=== PATIENT | female | born 1950 | race African-American/Black ===

== ENCOUNTER 2022-11-23 19:44 | Inpatient (IN) | payer MEDICARE, MEDICAID ==
[~2022-11-23] VITALS: Ht 162.6 cm; Wt 69.4 kg
[2022-11-23 19:00] VITALS: BP 111/62; PULSE 76; RESP 20; TEMP 98.4
[2022-11-23 20:00] VITALS: BP 148/80; PULSE 63; RESP 16; TEMP 97.8
[2022-11-23] MEDS ORDERED: ACETAMINOPHEN 325MG TABLET PO PRN (20:15)
[2022-11-23] MEDS ORDERED: IPRATROPIUM/ALBUTEROL 0.5-3(2.5)MG/3ML NEB HHN PRN (20:15)
[2022-11-23] MEDS ORDERED: ONDANSETRON HCL 4MG/2ML INJ IV PRN (20:15)
[2022-11-23] MEDS ORDERED: CLONIDINE 0.1MG TABLET PO PRN (20:15)
[2022-11-23] MEDS ORDERED: SODIUM CHLORIDE 0.45% 1,000 ML IV SCH (20:15)
[2022-11-23] MEDS: LACTULOSE 20G/30ML UDC PO SCH (23:13)
[2022-11-24] MEDS: LACTULOSE 20G/30ML UDC PO SCH ×3 (05:53→22:26)
[2022-11-24 08:00] VITALS: BP 154/89; PULSE 64; RESP 20; TEMP 97.8
[2022-11-25] MEDS: LACTULOSE 20G/30ML UDC PO SCH ×3 (05:38→22:00)
[2022-11-25 08:00] VITALS: BP 140/65; PULSE 70; RESP 18; TEMP 98.2
[2022-11-25 09:57] LABS: BASOPHILS % 0.5 % (0.0-2.0); EOSINOPHILS % 0.6 % (0.0-5.0); HEMOGLOBIN. 13.6 g/dL (12.0-16.0); LYMPHOCYTES % 19.2 % (20.0-50.0); MEAN CORPUSCULAR HEMOGLOBIN 28.4 pg (28.0-32.0); MEAN CORPUSCULAR HGB CONC 33.1 g/dL (31.0-37.0); MEAN CORPUSCULAR VOLUME 85.9 fL (81.0-99.0); MONOCYTES % 5.7 % (2.0-8.0); RED BLOOD CELL COUNT 4.78 mill/uL (4.2-5.4); RED CELL DISTRIBUTION WIDTH 13.7 % (11.6-14.6); WHITE BLOOD COUNT 7.7 x1000/uL (4.5-11.0)
[2022-11-25 10:01] LABS: DIFFERENTIAL COMMENT 1
[2022-11-25 10:03] LABS: AMMONIA 30 uMol/L (<32)
[2022-11-25 10:32] LABS: INDEX HEMOLYSI 1 (1-3); INDEX ICTERIC 1 (1-4); INDEX LIPEMIC 1 (1-3)
[2022-11-25 10:52] LABS: ALANINE AMINOTRANSFERASE 28 IU/L (13-61); ALBUMIN 3.6 g/dL (3.4-5.0); ASPARTATE AMINOTRANSFERASE 32 IU/L (15-37); BILIRUBIN TOTAL 0.6 mg/dL (0.1-1.0); CALCIUM 9.9 mg/dL (8.5-10.1); CARBON DIOXIDE 27 mEq/L (21-32); CHLORIDE 104 mEq/L (98-107); CHOLESTEROL 186 mg/dL (<200); CREATINE KINASE 111 IU/L (26-192); CREATININE 0.8 mg/dL (0.6-1.3); GLUCOSE 136 mg/dL (70-105); HDL CHOLESTEROL 77 mg/dL (40-59); IRON 70 ug/dL (50-175); LDL CHOLESTEROL 99 mg/dL (5-100); POTASSIUM 3.7 mEq/L (3.5-5.1); PREALBUMIN 29.5 mg/dL (20.0-40.0); SODIUM 138 mEq/L (136-145); TOTAL IRON BINDING CAPACITY 333 ug/dL (250-450); TRIGLYCERIDE 97 mg/dL (0-150); UREA NITROGEN BLOOD 15 mg/dL (7-21)
[2022-11-25 11:17] LABS: MEAN PLATELET VOLUME 11.7 fl (7.4-10.4); PLATELET 113 x1000/uL (130-400)
[2022-11-25 11:39] LABS: FOLIC ACID (FOLATE) SERUM > 20.00 ng/mL (>5.38); VITAMIN B12 SERUM > 2000.0 pg/mL (211-911)
[2022-11-25 14:25] LABS: FERRITIN 65 ng/mL (10-291)
[2022-11-25] MEDS ORDERED: ONDANSETRON 4MG ODT PO PRN (19:08)
[2022-11-25 20:00] VITALS: BP 165/95; PULSE 86; RESP 18; TEMP 97.5
[2022-11-26] MEDS: LACTULOSE 20G/30ML UDC PO SCH ×3 (06:00→22:36)
[2022-11-26 08:00] VITALS: BP 158/82; PULSE 70; RESP 18; TEMP 97.8
[2022-11-26] MEDS ORDERED: ONDANSETRON 4MG ODT PO PRN (12:12)
[2022-11-26 12:39] LABS: CLARITY URINE TURBID (CLEAR); COLOR URINE YELLOW (YELLOW); GLUCOSE URINE NEGATIVE (NEGATIVE); KETONES URINE NEGATIVE (NEGATIVE); LEUKOCYTE ESTERASE URINE 3+ (NEGATIVE); NITRITE URINE NEGATIVE (NEGATIVE); OCCULT BLOOD URINE 1+ (NEGATIVE); PH URINE 5.5 (4.5-8.0); PROTEIN URINE 1+ (NEGATIVE); SPECIFIC GRAVITY URINE 1.012 (1.005-1.030); UROBILINOGEN URINE 0.2 E.U./dL (0.2-1.0)
[2022-11-26 12:51] LABS: BACTERIA URINE 4+; SQUAMOUS EPITHELIAL CELL URINE 1+ /lpf (RARE/1+); WBC URINE TNTC /hpf (0-2); YEAST URINE NONE SEEN
[2022-11-26 20:00] VITALS: BP 160/93; PULSE 74; RESP 18; TEMP 97.9
[2022-11-26 20:55] VITALS: BP 155/90; PULSE 70
[2022-11-27] MEDS: LACTULOSE 20G/30ML UDC PO SCH ×3 (06:56→21:55)
[2022-11-27 08:00] VITALS: BP 167/93; PULSE 84; RESP 17; TEMP 97.1
[2022-11-27 20:00] VITALS: BP 158/91; PULSE 69; RESP 17; TEMP 98
[2022-11-28] MEDS: LACTULOSE 20G/30ML UDC PO SCH ×3 (06:00→21:35)
[2022-11-28 08:00] VITALS: BP 150/80; PULSE 66; RESP 18; TEMP 97.8
[2022-11-28 20:00] VITALS: BP 170/101; PULSE 80; RESP 18; TEMP 97.1
[2022-11-29] MEDS: LACTULOSE 20G/30ML UDC PO SCH ×3 (05:19→20:59)
[2022-11-29 08:00] VITALS: BP 117/75; PULSE 68; RESP 18; TEMP 97
[2022-11-29 20:00] VITALS: BP 173/77; PULSE 69; RESP 19; TEMP 97.1
[2022-11-30] MEDS: LACTULOSE 20G/30ML UDC PO SCH ×3 (06:38→21:01)
[2022-11-30 08:00] VITALS: BP 132/78; PULSE 69; RESP 17; TEMP 96.8
[2022-11-30 20:00] VITALS: BP 157/73; PULSE 69; RESP 17; TEMP 97.5
[2022-12-01] MEDS: LACTULOSE 20G/30ML UDC PO SCH ×3 (05:33→21:51)
[2022-12-01 07:40] LABS: BASOPHILS % 0.6 % (0.0-2.0); EOSINOPHILS % 0.7 % (0.0-5.0); HEMATOCRIT. 37.1 % (36.0-48.0); HEMOGLOBIN. 12.6 g/dL (12.0-16.0); LYMPHOCYTES % 18.8 % (20.0-50.0); MEAN CORPUSCULAR HEMOGLOBIN 28.7 pg (28.0-32.0); MEAN CORPUSCULAR HGB CONC 34.1 g/dL (31.0-37.0); MEAN CORPUSCULAR VOLUME 84.1 fL (81.0-99.0); NEUTROPHILS % 71.9 % (40.0-76.0); PLATELET 103 x1000/uL (130-400); RED CELL DISTRIBUTION WIDTH 13.4 % (11.6-14.6); WHITE BLOOD COUNT 8.5 x1000/uL (4.5-11.0)
[2022-12-01 08:00] VITALS: BP 140/68; PULSE 60; RESP 20; TEMP 97.6
[2022-12-01 08:10] LABS: AMMONIA 37 uMol/L (<32)
[2022-12-01 08:21] LABS: CHLORIDE 108 mEq/L (98-107); INDEX HEMOLYSI 2 (1-3); INDEX ICTERIC 1 (1-4); INDEX LIPEMIC 1 (1-3); SODIUM 138 mEq/L (136-145)
[2022-12-01 08:33] LABS: ALANINE AMINOTRANSFERASE 44 IU/L (13-61); ALBUMIN 3.2 g/dL (3.4-5.0); ASPARTATE AMINOTRANSFERASE 39 IU/L (15-37); BILIRUBIN TOTAL 0.8 mg/dL (0.1-1.0); CALCIUM 9.2 mg/dL (8.5-10.1); CARBON DIOXIDE 24 mEq/L (21-32); CREATININE 0.9 mg/dL (0.6-1.3); GLUCOSE 98 mg/dL (70-105); PROTEIN TOTAL 6.9 g/dL (6.0-8.3); UREA NITROGEN BLOOD 17 mg/dL (7-21)
[2022-12-01] MEDS ORDERED: LACTULOSE 20G/30ML UDC PO SCH (14:00)
[2022-12-01 20:08] VITALS: BP 140/62; PULSE 86; RESP 20; TEMP 97.2
[2022-12-02] MEDS: LACTULOSE 20G/30ML UDC PO SCH ×3 (06:16→21:53)
[2022-12-02 08:00] VITALS: BP 142/81; PULSE 61; RESP 17; TEMP 96.9
[2022-12-02] MEDS: FLUOXETINE HCL 10 MG CAPSULE PO SCH (13:10)
[2022-12-02 16:21] LABS: INDEX HEMOLYSI 2 (1-3)
[2022-12-02 16:22] LABS: BASOPHILS % 0.6 % (0.0-2.0); EOSINOPHILS % 0.9 % (0.0-5.0); HEMATOCRIT. 43.2 % (36.0-48.0); HEMOGLOBIN. 14.6 g/dL (12.0-16.0); LYMPHOCYTES % 15.9 % (20.0-50.0); MEAN CORPUSCULAR HEMOGLOBIN 28.4 pg (28.0-32.0); MEAN CORPUSCULAR HGB CONC 33.7 g/dL (31.0-37.0); MEAN CORPUSCULAR VOLUME 84.2 fL (81.0-99.0); MONOCYTES % 7.6 % (2.0-8.0); RED BLOOD CELL COUNT 5.13 mill/uL (4.2-5.4); RED CELL DISTRIBUTION WIDTH 13.8 % (11.6-14.6); WHITE BLOOD COUNT 10.5 x1000/uL (4.5-11.0)
[2022-12-02 16:24] LABS: AMMONIA 23 uMol/L (<32); DIFFERENTIAL COMMENT 1
[2022-12-02 19:36] LABS: MEAN PLATELET VOLUME 9.7 fl (7.4-10.4); PLATELET 66 x1000/uL (130-400)
[2022-12-02 20:03] VITALS: BP 129/56; PULSE 76; RESP 18; TEMP 96.9
[2022-12-03] MEDS: LACTULOSE 20G/30ML UDC PO SCH ×3 (06:00→22:00)
[2022-12-03 08:00] VITALS: BP 160/85; PULSE 65; RESP 18; TEMP 97.6
[2022-12-03] MEDS: FLUOXETINE HCL 10 MG CAPSULE PO SCH (10:22)
[2022-12-03 20:00] VITALS: BP 165/84; PULSE 75; RESP 18; TEMP 97.9
[2022-12-04] MEDS: LACTULOSE 20G/30ML UDC PO SCH (07:01)
[2022-12-04 07:30] LABS: BASOPHILS % 0.6 % (0.0-2.0); DIFFERENTIAL COMMENT 0; EOSINOPHILS % 1.2 % (0.0-5.0); HEMATOCRIT. 39.2 % (36.0-48.0); HEMOGLOBIN. 13.2 g/dL (12.0-16.0); LYMPHOCYTES % 21.3 % (20.0-50.0); MEAN CORPUSCULAR HEMOGLOBIN 28.7 pg (28.0-32.0); MEAN CORPUSCULAR HGB CONC 33.6 g/dL (31.0-37.0); MEAN CORPUSCULAR VOLUME 85.5 fL (81.0-99.0); MEAN PLATELET VOLUME 12.2 fl (7.4-10.4); MONOCYTES % 8.5 % (2.0-8.0); NEUTROPHILS % 68.4 % (40.0-76.0); PLATELET 94 x1000/uL (130-400); RED BLOOD CELL COUNT 4.59 mill/uL (4.2-5.4); RED CELL DISTRIBUTION WIDTH 13.6 % (11.6-14.6); WHITE BLOOD COUNT 9.2 x1000/uL (4.5-11.0)
[2022-12-04 08:00] VITALS: BP 149/86; PULSE 75; RESP 20; TEMP 98
[2022-12-04] MEDS: FLUOXETINE HCL 10 MG CAPSULE PO SCH (09:00)
[2022-12-04 20:00] VITALS: BP 136/75; PULSE 70; RESP 18; TEMP 98
[2022-12-05 08:00] VITALS: BP 160/93; PULSE 71; RESP 17; TEMP 97.1
[2022-12-05] MEDS ORDERED: ATOR10TA69 PO (12:00)
[2022-12-05] MEDS ORDERED: AMLO10TA4 PO (12:00)
[2022-12-05] MEDS ORDERED: LOSA100T33 PO (12:00)
[2022-12-05] MEDS ORDERED: DONE10TA43 PO (12:00)
[2022-12-05] MEDS ORDERED: ASPI-1497 PO (12:00)
[2022-12-05] MEDS ORDERED: OLAN5TAB74 PO (12:01)
[2022-12-05] MEDS ORDERED: SERT-422 PO (12:01)
[2022-12-05] MEDS: ACETAMINOPHEN 325MG TABLET PO PRN (12:42)
[2022-12-05] MEDS: FLUOXETINE HCL 10 MG CAPSULE PO SCH (12:42)
[2022-12-05 15:19] LABS: CLARITY URINE CLOUDY (CLEAR); COLOR URINE DARK YELLOW (YELLOW); GLUCOSE URINE NEGATIVE (NEGATIVE); KETONES URINE TRACE (NEGATIVE); LEUKOCYTE ESTERASE URINE 1+ (NEGATIVE); NITRITE URINE POSITIVE (NEGATIVE); OCCULT BLOOD URINE TRACE (NEGATIVE); PH URINE 5.5 (4.5-8.0); PROTEIN URINE 2+ (NEGATIVE); SPECIFIC GRAVITY URINE 1.021 (1.005-1.030)
[2022-12-05 15:51] LABS: BACTERIA URINE 2+; SQUAMOUS EPITHELIAL CELL URINE 2+ /lpf (RARE/1+); WBC URINE 15-25 /hpf (0-2)
[2022-12-05 15:52] LABS: CALCIUM OXALATE CRYSTALS URINE 1+ /lpf; RBC URINE 0-2 /hpf (0-2)
[2022-12-05] MEDS: DOCUSATE SODIUM 100MG CAPSULE PO PRN (17:49)
[2022-12-05 20:00] VITALS: BP 173/93; PULSE 80; RESP 19; TEMP 97.5
[2022-12-05] MEDS: SULFAMETHOXAZOLE/TRIMETHOPRIM 800/160MG TABLET PO SCH (21:42)
[2022-12-06 08:00] VITALS: BP 160/87; PULSE 85; RESP 16; TEMP 97.8
[2022-12-06] MEDS: SULFAMETHOXAZOLE/TRIMETHOPRIM 800/160MG TABLET PO SCH ×2 (09:37→21:00)
[2022-12-06] MEDS: FLUOXETINE HCL 10 MG CAPSULE PO SCH (09:37)
[2022-12-06] MEDS ORDERED: DONEPEZIL HCL 10MG TABLET PO SCH (18:30)
[2022-12-06] MEDS ORDERED: AMLODIPINE 10MG TABLET PO SCH (18:30)
[2022-12-06 20:00] VITALS: BP 154/99; PULSE 76; RESP 18; TEMP 97.7
[2022-12-06] MEDS: ASPIRIN 81MG TABLET PO SCH (20:00)
[2022-12-06] MEDS: ATORVASTATIN CALCIUM 10MG TABLET PO SCH (22:07)
[2022-12-06] MEDS: OLANZAPINE 5MG TABLET PO SCH (22:07)
[2022-12-07 06:35] LABS: BASOPHILS % 0.6 % (0.0-2.0); DIFFERENTIAL COMMENT 0; EOSINOPHILS % 1.4 % (0.0-5.0); HEMATOCRIT. 39.7 % (36.0-48.0); HEMOGLOBIN. 12.9 g/dL (12.0-16.0); LYMPHOCYTES % 23.3 % (20.0-50.0); MEAN CORPUSCULAR HEMOGLOBIN 28.1 pg (28.0-32.0); MEAN CORPUSCULAR HGB CONC 32.5 g/dL (31.0-37.0); MEAN CORPUSCULAR VOLUME 86.3 fL (81.0-99.0); MONOCYTES % 8.7 % (2.0-8.0); PLATELET 83 x1000/uL (130-400)
[2022-12-07 07:31] LABS: CHLORIDE 107 mEq/L (98-107); INDEX HEMOLYSI 1 (1-3); INDEX ICTERIC 1 (1-4); INDEX LIPEMIC 1 (1-3); POTASSIUM 3.6 mEq/L (3.5-5.1); SODIUM 139 mEq/L (136-145)
[2022-12-07 07:39] LABS: ALANINE AMINOTRANSFERASE 44 IU/L (13-61); ALBUMIN 3.1 g/dL (3.4-5.0); ASPARTATE AMINOTRANSFERASE 41 IU/L (15-37); BILIRUBIN TOTAL 0.5 mg/dL (0.1-1.0); CALCIUM 8.8 mg/dL (8.5-10.1); CARBON DIOXIDE 25 mEq/L (21-32); CREATININE 1.1 mg/dL (0.6-1.3); GLUCOSE 80 mg/dL (70-105); PROTEIN TOTAL 6.8 g/dL (6.0-8.3); UREA NITROGEN BLOOD 21 mg/dL (7-21)
[2022-12-07 08:00] VITALS: BP 127/74; PULSE 71; RESP 17; TEMP 96.7
[2022-12-07] MEDS: LOSARTAN 100 MG TABLET PO SCH (09:00)
[2022-12-07] MEDS: SULFAMETHOXAZOLE/TRIMETHOPRIM 800/160MG TABLET PO SCH ×2 (09:00→21:00)
[2022-12-07] MEDS: FLUOXETINE HCL 10 MG CAPSULE PO SCH (09:00)
[2022-12-07] MEDS: ASPIRIN 81MG TABLET PO SCH (09:00)
[2022-12-07] MEDS ORDERED: AMLODIPINE 10MG TABLET PO SCH (16:44)
[2022-12-07] MEDS ORDERED: DONEPEZIL HCL 10MG TABLET PO SCH (16:45)
[2022-12-07 20:00] VITALS: BP 159/88; PULSE 70; RESP 18; TEMP 97
[2022-12-07] MEDS: OLANZAPINE 5MG TABLET PO SCH (22:00)
[2022-12-07] MEDS: ATORVASTATIN CALCIUM 10MG TABLET PO SCH (22:01)
[2022-12-08] MEDS: DOCUSATE SODIUM 100MG CAPSULE PO PRN (06:53)
[2022-12-08 08:00] VITALS: BP 128/89; PULSE 73; RESP 16; TEMP 97.5
[2022-12-08] MEDS: ACETAMINOPHEN 325MG TABLET PO PRN (08:33)
[2022-12-08] MEDS: ASPIRIN 81MG TABLET PO SCH (08:33)
[2022-12-08] MEDS: LOSARTAN 100 MG TABLET PO SCH (08:33)
[2022-12-08] MEDS: FLUOXETINE HCL 10 MG CAPSULE PO SCH (08:33)
[2022-12-08 10:17] VITALS: BP 128/89; PULSE 73; TEMP 97.5; O2SAT 98
[2022-12-08] MEDS ORDERED: LEVOFLOXACIN 500MG TABLET PO SCH (11:00)
[2022-12-08 17:06] LABS: ANTI-NUCLEAR ANTIBODIES DIRECT Negative (Negative)
[2022-12-11 14:12] LABS: ANTI-CARDIOLIPIN AB IGA < 9 APL U/mL (0-11); ANTI-CARDIOLIPIN AB IGG < 9 GPL U/mL (0-14); ANTI-CARDIOLIPIN AB IGM 13 MPL U/mL (0-12)
== END 2022-12-08 14:21 | disposition home health service (06) | DRG 70 ==
PROVIDERS: ADMIT Physical Medicine & Rehabilitation Spinal Cord Injury Medicine; ATTEND Internal Medicine
PROC: 4A00X4Z Measurement of Central Nervous Electrical Activity, External Approach (ICD-10-PCS; principal; 2022-11-23)
DX: G93.41 Metabolic encephalopathy (principal); G82.50 Quadriplegia, unspecified; N39.0 Urinary tract infection, site not specified; E72.20 Disorder of urea cycle metabolism, unspecified; F03.93 Unspecified dementia, unspecified severity, with mood disturbance; F05 Delirium due to known physiological condition; G91.9 Hydrocephalus, unspecified; Z16.12 Extended spectrum beta lactamase (ESBL) resistance; E87.6 Hypokalemia; R55 Syncope and collapse; D69.6 Thrombocytopenia, unspecified; R26.9 Unspecified abnormalities of gait and mobility; I10 Essential (primary) hypertension; R13.10 Dysphagia, unspecified; E55.9 Vitamin D deficiency, unspecified; E66.9 Obesity, unspecified; B96.1 Klebsiella pneumoniae [K. pneumoniae] as the cause of diseases classified elsewhere; E78.00 Pure hypercholesterolemia, unspecified; R53.1 Weakness; R53.81 Other malaise; G31.9 Degenerative disease of nervous system, unspecified; G93.49 Other encephalopathy; Z91.81 History of falling; Z86.73 Personal history of transient ischemic attack (TIA), and cerebral infarction without residual deficits; Z91.83 Wandering in diseases classified elsewhere
CPT/HCPCS: 36415; 80053; 80061; 81003; 82140; 82306; 82550; 82607; 82728; 82746; 83036; 83540; 83550; 84134; 84443; 85025; 86038; 86147; 87077; 87186; 87426; 92523; 92610; 93970; 97110; 97112; 97116; 97162; 97166; 97530; 97535; 97542; A6261

== ENCOUNTER 2023-08-05 07:16 | Emergency (ER) | payer MEDICARE, MEDICAID ==
[~2023-08-05] VITALS: Ht 160 cm; Wt 65.0 kg
[~2023-08-05 07:16] MED LIST: AMLO10TA4 PO; ASPI-1497 PO; ATOR10TA69 PO; DONE10TA43 PO; LOSA100T33 PO; OLAN5TAB74 PO; SERT-422 PO
[2023-08-05 07:30] VITALS: O2SAT 99
[2023-08-05] MEDS: SODIUM CHLORIDE 0.9% 1,000 ML IV ONE (09:18)
[2023-08-05] MEDS: ACETAMINOPHEN 325MG TABLET PO ONE (09:19)
[2023-08-05 10:07] LABS: BASOPHILS % 0.6 % (0.0-2.0); EOSINOPHILS % 0.6 % (0.0-5.0); HEMATOCRIT. 39.1 % (36.0-48.0); HEMOGLOBIN. 13.1 g/dL (12.0-16.0); MEAN CORPUSCULAR HEMOGLOBIN 28.6 pg (28.0-32.0); MEAN CORPUSCULAR HGB CONC 33.4 g/dL (31.0-37.0); MEAN CORPUSCULAR VOLUME 85.6 fL (81.0-99.0); MEAN PLATELET VOLUME 11.3 fl (7.4-10.4); MONOCYTES % 6.1 % (2.0-8.0); NEUTROPHILS % 72.7 % (40.0-76.0); PLATELET 121 x1000/uL (130-400); RED BLOOD CELL COUNT 4.57 mill/uL (4.2-5.4); RED CELL DISTRIBUTION WIDTH 13.6 % (11.6-14.6); WHITE BLOOD COUNT 8.7 x1000/uL (4.5-11.0)
[2023-08-05 10:10] LABS: CHLORIDE 104 mEq/L (98-107); POTASSIUM 4.1 mEq/L (3.5-5.1); SODIUM 140 mEq/L (136-145)
[2023-08-05 10:11] LABS: CALCIUM 9.6 mg/dL (8.7-10.4); CARBON DIOXIDE 30 mEq/L (21-32)
[2023-08-05 10:16] LABS: CREATININE 0.8 mg/dL (0.6-1.0); GLUCOSE 98 mg/dL (70-105); UREA NITROGEN BLOOD 13 mg/dL (9-23)
[2023-08-05 10:17] LABS: INR 0.9; PARTIAL THROMBOPLASTIN TIME 25.4 sec (23.4-31.0); PROTHROMBIN TIME 10.3 sec (9.6-11.0); TROPONIN I HIGH SENSITIVITY 4 ng/L (3.0-34)
[2023-08-05] MEDS ORDERED: TOPUD MT (10:50)
[2023-08-05 15:00] VITALS: BP 166/75; PULSE 70; RESP 16; TEMP 98.4
== END 2023-08-05 17:15 ==
LOC: ER 07:16
DX: S00.03XA Contusion of scalp, initial encounter (principal); D64.9 Anemia, unspecified; F32.A Depression, unspecified; I10 Essential (primary) hypertension; E78.00 Pure hypercholesterolemia, unspecified; F19.90 Other psychoactive substance use, unspecified, uncomplicated; F03.90 Unspecified dementia, unspecified severity, without behavioral disturbance, psychotic disturbance, mood disturbance, and anxiety
CPT/HCPCS: 99285; 96360; 70450; 71045; 96361; 80048; 85025; 85610; 85730; 84484; 36415; 93005; J7030